=== PATIENT | male | born 1945 | race Asian ===

== ENCOUNTER 2023-01-22 17:55 | Emergency (ER) | payer MEDICARE, OTHER ==
[~2023-01-22] VITALS: Ht 167.6 cm; Wt 71.9 kg
[2023-01-22 21:23] LABS: INFLUENZA B NAA NEGATIVE (NEGATIVE); RESPIRATORY SYNCYTIAL VIR NAA NEGATIVE (NEGATIVE)
[2023-01-22] MEDS ORDERED: AZITHROMYCIN500 MG PO (22:02)
[2023-01-22 22:48] VITALS: BP 132/83
== END 2023-01-22 22:50 | disposition home or self-care (01) ==
LOC: ED 17:55
PROVIDERS: Family Medicine
DX: J98.09 Other diseases of bronchus, not elsewhere classified (principal); R04.2 Hemoptysis; R91.1 Solitary pulmonary nodule; Z20.822 Contact with and (suspected) exposure to COVID-19
CPT/HCPCS: 71250; 87502; 94640; 94664; 99284-25; C9803; U0002